=== PATIENT | female | born 1980 | race Caucasian/White ===

== ENCOUNTER → 2020-04-20 | Outpatient (CLI) | payer MEDICAID ==
[~2020-04-20] MED LIST: DEXT 5%/LR + PITOCIN 20UNITS/L 1,000 ML IV SCH; IBUP-2030 MT; LACTATED RINGERS 1,000 ML IV SCH; RHO(D) IMMUNE GLOBULIN 300 MCG/SYR IM ONE
== END | disposition home or self-care (01) ==
LOC: LAB 06:33
PROVIDERS: ATTEND Obstetrics & Gynecology
DX: Z03.818 Encounter for observation for suspected exposure to other biological agents ruled out (principal)
CPT/HCPCS: C9803; U0003

== ENCOUNTER 2020-04-22 06:05 | Inpatient (IN) | payer MEDICAID ==
[~2020-04-22] VITALS: Ht 154.9 cm; Wt 134.7 kg
[2020-04-22] MEDS: KETOROLAC 30MG/ML VIAL IV SCH ×2 (03:00→21:00)
[2020-04-22] MEDS ORDERED: LACTATED RINGERS 1,000 ML IV SCH (06:59)
[2020-04-22] MEDS ORDERED: DEXT 5%/LR + PITOCIN 20UNITS/L 1,000 ML IV SCH ×2 (06:59→09:36)
[2020-04-22] MEDS ORDERED: CARBOPROST TROMETHAMINE 250 MCG/ML AMPUL IM PRN (07:00)
[2020-04-22] MEDS ORDERED: NALOXONE HCL 0.4 MG/ML 1ML VIAL IM PRN (07:00)
[2020-04-22] MEDS ORDERED: METHYLERGONOVINE MALEATE 0.2 MG/ML IM PRN (07:00)
[2020-04-22 07:11] LABS: BASOPHILS % 0.5 % (0.0-2.0); EOSINOPHILS % 0.8 % (0.0-5.0); LYMPHOCYTES % 24.5 % (20.0-50.0); MEAN CORPUSCULAR HEMOGLOBIN 32.7 pg (28.0-32.0); MEAN CORPUSCULAR VOLUME 93.2 fL (81.0-99.0); MONOCYTES % 6.3 % (2.0-8.0); NEUTROPHILS % 67.9 % (40.0-76.0); PLATELET 294 x1000/uL (130-400); RED BLOOD CELL COUNT 3.96 mill/uL (4.2-5.4); RED CELL DISTRIBUTION WIDTH 13.6 % (11.6-14.6)
[2020-04-22 07:22] LABS: CLARITY URINE TURBID (CLEAR); COLOR URINE YELLOW (YELLOW); KETONES URINE NEGATIVE (NEGATIVE); LEUKOCYTE ESTERASE URINE 2+ (NEGATIVE); NITRITE URINE NEGATIVE (NEGATIVE); OCCULT BLOOD URINE TRACE (NEGATIVE); PROTEIN URINE 1+ (NEGATIVE); SPECIFIC GRAVITY URINE 1.022 (1.005-1.030); UROBILINOGEN URINE 0.2 E.U./dL (0.2-1.0)
[2020-04-22] MEDS ORDERED: PHENYLEPHRINE HCL 10 MG/ML 1ML (IV VIAL) IV ONE (07:29)
[2020-04-22] MEDS ORDERED: FENTANYL CITRATE/PF 50MCG/ML 2ML VIAL ONE (07:29)
[2020-04-22] MEDS ORDERED: CEFAZOLIN SODIUM 1000MG/VIAL ONE (07:29)
[2020-04-22] MEDS ORDERED: OXYTOCIN 10 UNITS/ML 1ML ONE ×2 (07:29→08:57)
[2020-04-22] MEDS ORDERED: MORPHINE SULFATE/PF 1MG/ML 10ML AMP ONE (07:29)
[2020-04-22] MEDS ORDERED: GLYCOPYRROLATE 0.2 MG/ML 2ML VIAL ONE (07:29)
[2020-04-22] MEDS ORDERED: METOCLOPRAMIDE HCL 10MG/2ML VIAL ONE (07:29)
[2020-04-22] MEDS ORDERED: EPHEDRINE SULFATE 50MG/ML VIAL ONE (07:29)
[2020-04-22] MEDS ORDERED: ONDANSETRON HCL 4MG/2ML INJ ONE (07:30)
[2020-04-22] MEDS ORDERED: CITRIC ACID/SODIUM CITRATE SOLN 30ML UDC PO ONE (07:30)
[2020-04-22 07:31] LABS: *AMPHETAMINES SCREEN URINE NEGATIVE (NEGATIVE)
[2020-04-22 07:32] LABS: *BARBITURATES SCREEN URINE NEGATIVE (NEGATIVE); *BENZODIAZEPINES SCREEN URINE NEGATIVE (NEGATIVE); *COCAINE SCREEN URINE NEGATIVE (NEGATIVE); CANNABINOID URINE SCREEN NEGATIVE (NEGATIVE); METHADONE URINE SCREEN NEGATIVE (NEGATIVE); OPIATES URINE SCREEN NEGATIVE (NEGATIVE)
[2020-04-22 07:33] LABS: PHENCYCLIDINE URINE SCREEN NEGATIVE (NEGATIVE)
[2020-04-22 08:03] LABS: INR 0.9; PARTIAL THROMBOPLASTIN TIME 27.1 sec (23.4-31.0); PROTHROMBIN TIME 9.6 sec (9.6-11.0)
[2020-04-22] MEDS ORDERED: DIPHENHYDRAMINE 50MG/ML VIAL ONE (08:55)
[2020-04-22] MEDS ORDERED: KETOROLAC 60MG/2ML VIAL IM ONE (08:59)
[2020-04-22] MEDS ORDERED: IBUPROFEN 400MG TABLET PO PRN (09:45)
[2020-04-22] MEDS ORDERED: IBUPROFEN 800MG TABLET PO PRN (09:45)
[2020-04-22] MEDS ORDERED: HYDROCODONE/ACETAMINOPHEN 5/325MG TABLET PO PRN (09:45)
[2020-04-22] MEDS ORDERED: LANOLIN OINT 7GM TUBE TOP PRN (09:45)
[2020-04-22] MEDS ORDERED: BISACODYL 10MG SUPP PR PRN (09:45)
[2020-04-22] MEDS ORDERED: ONDANSETRON HCL 4MG/2ML INJ IV PRN (09:45)
[2020-04-22] MEDS ORDERED: NALOXONE HCL 0.4 MG/ML 1ML VIAL IV PRN (10:00)
[2020-04-22] MEDS ORDERED: BUTORPHANOL TARTRATE 2 MG/ML VIAL IV PRN (10:00)
[2020-04-22] MEDS ORDERED: DIPHENHYDRAMINE 50MG/ML VIAL IV PRN (10:00)
[2020-04-22 16:30] VITALS: BP 90/46
[2020-04-22 20:00] VITALS: BP 111/72
[2020-04-22] MEDS: SIMETHICONE 80MG TABLET CHEW PO SCH (21:00)
[2020-04-22] MEDS ORDERED: DIPHENHYDRAMINE 25MG CAPSULE PO PRN (21:00)
[2020-04-22] MEDS: DOCUSATE SODIUM 100MG CAPSULE PO SCH (21:47)
[2020-04-23] VITALS: BP 103/63
[2020-04-23 04:00] VITALS: BP 113/61
[2020-04-23 07:50] LABS: BASOPHILS % 0.3 % (0.0-2.0); EOSINOPHILS % 0.8 % (0.0-5.0); HEMOGLOBIN. 10.9 g/dL (12.0-16.0); LYMPHOCYTES % 14.4 % (20.0-50.0); MEAN CORPUSCULAR HEMOGLOBIN 32.3 pg (28.0-32.0); MEAN CORPUSCULAR VOLUME 94.8 fL (81.0-99.0); MEAN PLATELET VOLUME 8.2 fl (7.4-10.4); MONOCYTES % 7.2 % (2.0-8.0); NEUTROPHILS % 77.3 % (40.0-76.0); PLATELET 234 x1000/uL (130-400); RED BLOOD CELL COUNT 3.37 mill/uL (4.2-5.4); RED CELL DISTRIBUTION WIDTH 13.8 % (11.6-14.6)
[2020-04-23 08:00] VITALS: BP 96/46
[2020-04-23] MEDS ORDERED: FERROUS SULFATE 325MG TABLET PO SCH (09:00)
[2020-04-23] MEDS ORDERED: PRENATAL VIT/FE FUMARATE/FA TABLET PO SCH (09:00)
[2020-04-23] MEDS: SIMETHICONE 80MG TABLET CHEW PO SCH ×2 (09:25→21:50)
[2020-04-23 16:00] VITALS: BP 104/51
[2020-04-23 20:00] VITALS: BP 103/62
[2020-04-23] MEDS: DOCUSATE SODIUM 100MG CAPSULE PO SCH (21:49)
[2020-04-24] VITALS: BP 112/62
[2020-04-24 04:00] VITALS: BP 114/81
[2020-04-24] MEDS ORDERED: IBUP-2030 MT (08:10)
[2020-04-24 08:20] VITALS: BP 128/75
== END 2020-04-25 00:11 | disposition home or self-care (01) | DRG 540 ==
LOC: 8 EST LDRP 06:05 → 8 EST A/PP 11:53
PROVIDERS: ADMIT Obstetrics & Gynecology; ATTEND Obstetrics & Gynecology
PROC: 10D00Z1 Extraction of Products of Conception, Low, Open Approach (ICD-10-PCS; principal; 2020-04-22)
PROC: 0UB70ZZ Excision of Bilateral Fallopian Tubes, Open Approach (ICD-10-PCS; 2020-04-22)
DX: O34.211 Maternal care for low transverse scar from previous cesarean delivery (principal); O99.214 Obesity complicating childbirth; O77.0 Labor and delivery complicated by meconium in amniotic fluid; Z30.2 Encounter for sterilization; Z37.0 Single live birth; Z3A.39 39 weeks gestation of pregnancy
CPT/HCPCS: 36415; 80305; 81003; 85025; 86592; 86703; 86762; 86850; 86900; 88302; 88307; J0690; J1200; J1885; J2274; J2370; J2405; J2590; J2765; J3010; J3490; J7120